=== PATIENT | female | born 1965 | race Caucasian/White ===

== ENCOUNTER 2021-02-28 05:17 | Emergency (ER) | payer OTHER ==
[~2021-02-28] VITALS: Ht 167.6 cm; Wt 74.8 kg
[2021-02-28] MEDS ORDERED: AZITHROMYCIN 250 MG TAB PO STA (06:07)
[2021-02-28] MEDS ORDERED: VENTOLIN HFA18 GM INH (06:13)
[2021-02-28] MEDS ORDERED: FIORICET 50-301 EACH PO (06:13)
[2021-02-28] MEDS ORDERED: PREDNISONE20 MG PO (06:13)
[2021-02-28] MEDS ORDERED: AZITHROMYCIN250 MG PO (06:13)
[2021-02-28] MEDS ORDERED: ACETAMINOPHEN 325 MG TAB PO ONE (06:15)
[2021-02-28] MEDS ORDERED: DEXAMETHASONE SOD PHOS INJ 4 MG/ML SDV IM ONE (06:15)
[2021-02-28] MEDS ORDERED: DEXAMETHASONE SOD PHOS INJ 4 MG/ML SDV ONE (06:19)
== END 2021-02-28 06:22 | disposition home or self-care (01) ==
LOC: FSED 05:45
DX: U07.1 COVID-19 (principal); R05.9 Cough, unspecified; R51.9 Headache, unspecified; R53.81 Other malaise; I10 Essential (primary) hypertension
CPT/HCPCS: 96372; 99282; J1100; U0002